=== PATIENT | male | born 1940 | race Caucasian/White ===

== ENCOUNTER 2024-01-01 02:36 | Observation (INO) | payer OTHER, SELFPAY ==
[2023-12-31 21:14] VITALS: BP 115/74
[2023-12-31 21:49] LABS: ALT (SGPT) 19 U/L (0-50); AST (SGOT) 36 U/L (17-59); Albumin 4.9 g/dl (3.5-5.0); Alkaline Phosphatase 77 U/L (38-126); Blood Urea Nitrogen 17 mg/dl (9-20); Carbon Dioxide 21 mmol/L (22-30); Chloride 102 mmol/L (98-107); Glucose 225 mg/dl (70-99); Potassium 4.8 mmol/L (3.5-5.1); Sodium 141 mmol/L (135-145); Total Bilirubin 0.4 mg/dl (0.2-1.3); Total Protein 7.5 g/dl (6.3-8.2); eGFR > 60.00
[2023-12-31 21:50] LABS: Creatine Phosphokinase 153 U/L (55-170)
[2023-12-31 21:53] LABS: % Basophils 0.2 % (0-2); % Immature Granulocytes 0.4 % (0-0.5); % Lymphocytes 2.8 % (20.5-51.1); % Monocytes 1.2 % (1.7-9.3); % Neutrophils 95.4 % (42.2-75.2); Absolute Lymphocytes 0.3 10^3/uL (1.2-3.4); Absolute Monocytes 0.1 10^3/uL (0.1-0.6); Absolute Neutrophils 10.6 10^3/uL (1.4-6.5); Mean Corp Hgb Conc. 34.8 g/dL (33.0-37.0); Mean Corpuscular Hgb 32.8 pg (27.0-31.0); Mean Corpuscular Volume 94.3 fL (80.0-94.0); Mean Platelet Volume 9.6 fL (7.4-10.4); Nucleated Red Blood Cells % 0 % (-); Platelet Count 255 10^3/uL (130-400); Red Blood Cell Count 4.88 10^6/uL (4.70-6.10); Red Cell Dist. Width 13.1 % (11.5-14.5); White Blood Cell Count 11.1 10^3/uL (4.8-10.8)
[2023-12-31 22:09] VITALS: BP 109/78
[2023-12-31 23:00] VITALS: BP 113/73
[2024-01-01] VITALS (8 sets, daily range): BP systolic 117–148; BP diastolic 57–79; PULSE 55–56; O2SAT 97; BMI 24.1
--- NOTE | 2024-01-01 00:08 | ED.GENMED ---
History of Present Illness
General
Chief Complaint: Fall
Source: patient and family
Exam Limitations: none
Time Seen by Provider: 01/01/24 00:07
Nursing documentation reviewed up to this point in time: agreed with
History of Present Illness
History of Present Illness:
Patient is an 83-year-old male who presents to the ER for evaluation. Patient lives alone and recalls getting up from a chair around 5 PM and then woke up on the floor. He is unsure if he passed out or if he hit his head and was not unconscious.
His family reports he normally checks every night at 5:00 and he responds but he did not respond until 7 PM when he texted them and told him he was on the ground and could not get up.
Patient does admit to having small mount of vodka and poured imself wine though son reports he hardly drank any of it. Family reports patient had wounds to his left arm and bruising and a forehead laceration.
Patient denies headache presently. He is not on blood thinners. He is unsure his last tetanus
Review of Systems
Review of Systems
Allergies reviewed?: Yes
Other source history: family
All Other Systems: ROS reviewed and negative except as documented in HPI and ROS
Constitutional: Reports no symptoms
Respiratory: Reports no symptoms
Cardiac: Reports no symptoms
ABD/GI: Reports no symptoms; Denies nausea or vomiting
: Reports no symptoms
Musculoskeletal: Reports other (left arm pain /shoulder + skin tear to left arm )
Skin: Reports other (see above )
Neurological: Reports other (Questionable loss of consciousness ); Denies dizzy or headache
Psychiatric: Reports no symptoms
Phy Exam
General Physical Exam
General Presentation: no apparent distress
General age: appears stated age
General Skin: warm and dry
General Habitus: elderly
General Mental: alert
General Hydration: dry mucous membranes
Cardiovascular Exam
Cardiovascular Exam: regular rate/rhythm, no murmur and normal peripheral pulses
Pulmonary Exam
Pulmonary Exam: lungs clear and no respiratory distress
Gastrointestinal Exam
Gastrointestinal Exam: non tender and soft
Neurological Exam
Neurological Exam: alert and oriented x3
Musculoskeletal Exam
Musculoskeletal Exam: other (+1 cm partial-thickness laceration to forehead; left upper extremity with tenderness throughout the left shoulder area mild deformity to left AC joint, skin tears to left forearm abrasion to left knee the full range of
motion to bilateral lower extremities including internal/external rotation of hip)
Skin Exam
Skin Exam: normal color and warm/dry
Psychiatric Exam
Psychiatric Exam: normal mood/affect
Course
Orders/Labs/Results
Orders:
Orders
12/31/23 21:19
CT Head W/o Iv Contrast Urgent
Comment:
Reason For Exam: unwitnessed fall, unsure if LOC
12/31/23 21:21
EKG [Electrocardiogram (*1)] Urgent
Reason for Study: Other
Other Reason for Exam: fall
EKG- Treatment ONCE
Trauma Shoulder, Left CR [CR Shoulder, Trauma - Left] Urgent
Comment:
Reason For Exam: fall, pain
12/31/23 21:28
CBC/With Diff [Complete Blood Count/With Diff] Urgent
CMP [Comprehensive Metabolic Panel] Urgent
CPK [Creatine Phosphokinase] Urgent
01/01/24 00:21
Tetanus/Diphth/Acelpertussis [Adacel] 0.5 ml IM .ONCE ONE
01/01/24 00:54
0.9% Sodium Chloride 500 ml [Nss] 500 ml IV BOLUS
01/01/24 00:55
0.9% Sodium Chloride 500 ml [Nss] 500 ml IV BOLUS
01/01/24 01:25
Gabapentin [Neurontin] 600 mg PO NOW STA
Chest [CR Chest - 2 Views ] Urgent
Comment:
Reason For Exam: fall
01/01/24 22:00
Gabapentin [Neurontin] 100 mg PO HS
Abnormal Lab Results
12/31/23
21:28
WBC 11.1 H 10^3/uL
(4.8-10.8)
MCV 94.3 H fL
(80.0-94.0)
MCH 32.8 H pg
(27.0-31.0)
Absolute Neuts (auto) 10.6 H 10^3/uL
(1.4-6.5)
Absolute Lymphs (auto) 0.3 L 10^3/uL
(1.2-3.4)
Neutrophils % 95.4 H %
(42.2-75.2)
Lymphocytes % 2.8 L %
(20.5-51.1)
Monocytes % 1.2 L %
(1.7-9.3)
Carbon Dioxide 21 L mmol/L
(22-30)
Glucose 225 H mg/dl
(70-99)
12/31/23 21:28
12/31/23 21:28
Vital Signs
Initial and Last Documented VS:
Initial Vital Signs
Temp Pulse Resp BP Pulse Ox
98.0 F 102 18 115/74 98
12/31/23 21:14 12/31/23 21:14 12/31/23 21:14 12/31/23 21:14 12/31/23 21:14
Last Documented Vital Signs
Temp Pulse Resp BP Pulse Ox
98.0 F 91 20 122/65 95
12/31/23 21:14 01/01/24 00:00 01/01/24 00:00 01/01/24 00:00 01/01/24 00:00
Procedures
Laceration Closure
Head:
Status of Wound: clean
Size of Wound in cm: 0.5
Description of Wound Edges: sharp
Preparation: cleaned with saline
Type of Closure: Dermabond-skin glue
Additional information:
Skin tears to left forearm repaired/approximated with Steri-Strips
MDM/Problems Addressed
Differential Diagnosis Includes:
Not limited to head injury, syncope, loss of conscious, laceration, skin tears, contusions
MDM/Problems Addressed:
Patient is 83-year-old male who was brought by family. Patient was eating and then remembers standing up and then apparently woke up on the floor. He does not recall feeling lightheaded. Son Desiree [place] about 5 PM and he did not respond until 7
stating he was on the floor. Syncope versus fall with loss of conscious. Patient did test small laceration to forehead which was repaired with Dermabond. He also had some skin tears to his left forearm which was cleansed with normal saline
approximated. Patient complained of left shoulder pain and x-rays do show AC injury. Patient denies any headache nausea vomiting he is not on blood thinners. He was up-to-date on tetanus. He denies any other extremity pain. He denies any chest
pain shortness of breath. Will admit for possible syncope and continued monitoring for possible arrhythmia patient. Patient does appear dry on exam was given fluids . glucose elevated at 225.
*Radiology
Radiology exam reviewed: radiology read reviewed
*Pulse Oximetry
Patient hypoxic: no
*EKG
Interpreted by ED Provider?: Yes
Heart Rate: 94
Rate: normal
Rhythm: sinus
Ischemia: no ischemia
*Critical Care Note
Total Time (30-74mins, 75-104mins- exclusive of procedures): Not Applicable
ED Attending Note
-
Portions of this chart may have been created with voice recognition software.� Occasional wrong word or��sound alike� substitutions may have occurred due to the inherent limitations of voice recognition software.
Discharge Plan
Departure
Patient Disposition: Admit
Date of Disposition: 01/01/24
Time of Disposition: 01:37
Admit to: Med/Surg
Admit to doctor: newton
Presentation/result/management discussed w/ accepting MD/DO: Hospitalist
Patient with high blood pressure during this ER visit?: No
Condition: Fair
Covid-19: Not Applicable
Discharge Problem:
Head injury, possible syncope, Laceration of head
Prescriptions:
No Action
gabapentin 600 mg Tablet
600 mg PO BID
losartan 25 mg
25 mg PO DAILY
Rx Instructions:
morning
metoprolol succinate 25 mg
25 mg PO DAILY
Rx Instructions:
morning
tamsulosin 0.4 mg
0.4 mg PO 4-8XD
Referrals:
Chucky Barba MD [Family Provider] -
Interventions
Interventions:
*Risk Screen - Suicide Last Done: 12/31/23 22:08
*Neglect/Abuse Screening Last Done: 12/31/23 22:08
ED- Neurological Assessment Last Done: 12/31/23 21:53
ED-Skin Assessment Last Done: 12/31/23 22:09
Discharge Date and Time
Print Language: BOTSWANAN
[2024-01-01] MEDS: ADACEL 0.5 ML IM (00:49)
[2024-01-01] MEDS: NSS 500 IV (00:55)
[2024-01-01] MEDS: NEURONTIN 600 MG PO ×2 (01:34→21:15)
--- NOTE | 2024-01-01 02:20 | HPS.HSE ---
Family Physician
-
Family Physician: Chucky Barba MD
Chief Complaint
-
Fall at Home
History of Present Illness
Patient is an 83y M with PMH significant for hypertension, peripheral neuropathy and DJD who presents to ED complaining of fall at home and LOC. Patient states that he was eating dinner and was feeling well this evening. He stood to walk to the
[employer] can and the next recollection he has is waking on the floor at home. He does not recall any sensations of lightheadedness, dizziness, chest pain, dyspnea, etc.
His son called him around 5:20 and received no answer. The patient returned his call around 7 - having apparently lost consciousness for a period of almost 2 hours.
Patient noted significant bleeding from an apparent injury to the L frontal scalp. He had abrasions on the L elbow and LLE.
Patient noted pain in the L shoulder with certain movements.
He does not recall the fall at all. He denies any prior h/o syncope.
He states that he has fallen in the past - typically related to tripping / stumbling which he attributes to his neuropathy.
Patient notes that he received injections (steroid / analgesia) to the R hip and R knee at [facility] around 3:30 PM.
He denies any recent changes to his medications.
In the ED, patient is resting comfortably and is awake, alert, pleasant and oriented.
Medical History
Past Medical History
Past Medical History: Reports Other
Additional Past Medical History:
Hypertension
Peripheral Neuropathy
BPH
DJD
Traumatic SDH
Past Surgical History: Reports Other
Additional Past Surgical History:
Right Knee Arthroscopy
Clarke Hole L Cranium
Social History
Tobacco: Non-smoker
Alcohol: Daily (1-2 drinks daily.)
Drug: None
Family History
Family History: Not pertinent
Allergies / Home Medications
Allergies reflects when Allergies were last updated in [facility].
Home Medications with original date entered in [facility]
Allergy/Medication List:
Allergies
Allergy/AdvReac Type Severity Reaction Status Date / Time
amoxicillin Allergy Unknown Verified 12/31/23 21:53
codeine Allergy Unknown Verified 12/31/23 21:53
Home Medications
gabapentin 600 mg tablet 600 mg PO BID 01/01/24
losartan 25 mg PO DAILY 01/01/24
metoprolol succinate 25 mg PO DAILY 01/01/24
tamsulosin 0.4 mg PO DAILY 01/01/24
Review of Systems
-
History Source: Patient
A 12 point ROS was completed and negative except as noted: Yes
Constitutional: Denies Fever or Chills
Respiratory: Denies Cough or Trouble Breathing
Cardiac: Denies Chest Pain or Palpitations
Abdomen/GI: Denies Abdominal Pain, Nausea, Vomiting or Diarrhea
: Denies Dysuria, Frequency or Flank Pain
Musculoskeletal: Reports Joint Pain; Denies Edema
Skin: Reports Other (Skin lesions / tears.)
Neurological: Reports Numbness; Denies Dizzy, Headache or Weakness
Psych: Denies Depression or Anxiety
Physical Exam
Vital Signs
Vital Signs
Temp Pulse Resp BP Pulse Ox
98.0 F 91 20 122/65 95
12/31/23 21:14 01/01/24 00:00 01/01/24 00:00 01/01/24 00:00 01/01/24 00:00
Physical Exam
General: Other (83y M in no acute distress. Awake and alert and bright / interactive.)
HEENT: Moist mucous membranes, PERRLA and Other (Superficial laceration L frontal area with evidence of prior bleeding. No active bleeding at present. L clarke hole scar L temporal area.)
Respiratory: Other (Few bibasilar rales. No wheeze / rhonchi.)
Cardiac: S1/S2 and Regular Rhythm; No Murmur
GI: Soft, Non Tender, Non Distended and Normal Bowel Sounds
Musculoskeletal: No Clubbing, No Cyanosis and No Edema
Skin: Other (Elbow dressing in place over skin tear. Scattered ecchymoses.)
Neuro: AO x 3 and Nonfocal/grossly intact
Laboratory Results
-
12/31/23 21:28
12/31/23:28
Laboratory Results
Total Bilirubin 0.4 mg/dl (0.2-1.3) 12/31/23 21:28
AST 36 U/L (17-59) 12/31/23:28
ALT 19 U/L (0-50) 12/31/23:
Alkaline Phosphatase 77 U/L (38-126) 12/31/23:
Impression/Plan
-
A/P: Patient is an 83y M with PMH significant for HTN, neuropathy and DJD who presents to ED complaining of fall at home and LOC.
Fall at Home
LOC / ? Syncope
- Observe overnight for further evaluation and treatment.
- ? fall with head trauma and resultant LOC versus syncope with resultant fall and head trauma?
- Based on prior history, former seems most likely.
- Monitor on telemetry overnight for any evidence of arrhythmia.
- Consider Cardiology evaluation if any significant abnormality noted.
- PT / OT evaluations in the AM for assessment of stability / gait.
Head Trauma
- Patient with evident head injury / scalp lac / bleeding.
- CT head unremarkable in the ED.
- Appears fully intact at present cognitively.
- Follow for any changes in neurologic exam / status.
- Repeat imaging immediately if any changes.
- He is not on any antiplatelet agents, OAC, etc.
Benign Hypertension
- Stable. Continue outpatient medications with holding parameters.
- Follow orthostatic BP, heart rate, etc given presentation.
- Adjust meds if needed.
Hyperglycemia
- Patient with no known history of DM, but glucose > 200.
- Suspect this is in part secondary to steroid injections that he received earlier in the day.
- Check A1C.
- Follow glucose and cover with SSI as needed.
DJD
Left AC Joint Injury
- Distal clavicle displaced superiorly on the L c/w AC joint injury.
- Sling when OOB.
- Ortho evaluation for additional recommendations.
- Seen at [facility] earlier on day of presentation and completed injections to the R hip and R knee.
Peripheral Neuropathy
- Stable. Continue gabapentin.
- PT / OT as noted above.
BPH
- Stable. Continue tamsulosin.
- Follow orthostatic signs as noted.
- Blader scan protocol.
DVT Prophylaxis: SCDs
Code Status: Full
--- NOTE | 2024-01-01 04:51 | PTCARENOTE ---
ax3 [place]- sinus- bp wnl- left forehead laceration with old blood along with left leg and elbow abrasions- pt ambulated with assistance to br voided. bed alarm placed for safety. pt agrees to use call cardozo
[2024-01-01 05:02] LABS: Hematocrit 42.8 % (39.0-52.0); Hemoglobin 14.9 g/dL (13.0-18.0); Mean Corp Hgb Conc. 34.8 g/dL (33.0-37.0); Mean Corpuscular Volume 94.7 fL (80.0-94.0); Mean Platelet Volume 9.5 fL (7.4-10.4); Platelet Count 210 10^3/uL (130-400); Red Blood Cell Count 4.52 10^6/uL (4.70-6.10); Red Cell Dist. Width 12.8 % (11.5-14.5); White Blood Cell Count 7.5 10^3/uL (4.8-10.8)
--- NOTE | 2024-01-01 05:12 | PTCARENOTE ---
sinus maxim 45-50 while asleep- per ed pt refused sling- . they brogguht up a sling if he changes his mind- string suggested he wear it while oob.
[2024-01-01 05:24] LABS: Blood Urea Nitrogen 20 mg/dl (9-20); Calcium 9.5 mg/dl (8.4-10.2); Carbon Dioxide 21 mmol/L (22-30); Chloride 106 mmol/L (98-107); Estimated Creatinine Clearance 95 ml/min; Glucose 131 mg/dl (70-99); Potassium 4.2 mmol/L (3.5-5.1); Sodium 137 mmol/L (135-145); eGFR > 60.00
[2024-01-01 05:27] LABS: Troponin I 0.012 ng/ml
[2024-01-01 05:52] LABS: TSH Reflex To Free T4 0.36 uIU/ml (0.47-4.68)
[2024-01-01] MEDS: NSS 1000 IV ×2 (05:56→15:39)
[2024-01-01 06:22] LABS: Free T4 0.97 ng/dl (0.78-2.19)
[2024-01-01 08:55] LABS: Glucose - Point of Care 144 mg/dl (70-99)
[2024-01-01] MEDS: NEURONTIN PO ×2 (09:12→10:42)
[2024-01-01] MEDS: FLOMAX 0.4 MG PO (09:12)
[2024-01-01] MEDS: COZAAR 25 MG PO (09:12)
[2024-01-01 09:30] LABS: Glycohemoglobin (HgbA1c) 4.9 % (4.0-5.6)
--- NOTE | 2024-01-01 11:05 | PTCARENOTE ---
Addendum entered by Juma Holman RN 01/01/24 17:59:
MD in to see patient at 1200, pt now agreeable to wear sling at this time.
Original Note:
Assumed care of pt from previous nurse. Sling applied to LUE, patient then removed it himself stating that it hurts to wear it. Pt states understanding of rationale of sling but refusing to wear it at this time.
[2024-01-01 11:49] LABS: Troponin I < 0.012 ng/ml
--- NOTE | 2024-01-01 11:50 | CM ---
Addendum entered by Anny Lovelace 01/01/24 16:21:
Therapy recommending PT/OT at home. CM called to patient son and left VM to discuss options for PT/OT at home. CM will continue to follow for discharge planning needs.
Original Note:
Patient seen at bedside with physician. Patient son also present. Patient states that he lives alone in a 2 story home. Patient has a quad cane that he uses. Patient uses [facility] in [place], Dr. Parker is his PCP. Patient stated that he plans to go
home with no needs but would be open to PT/OT pending medical treatment plan. Patient is OBS/[place] and form reviewed with patient and son. Signed form placed on chart. CM will continue to follow for discharge planning needs.
Plan; home with VN vs outpatient therapy; pending medical treatment assessments.
--- NOTE | 2024-01-01 11:57 | W.PN.HOSP.TC ---
Today's Communication/Plan
-
await PT/OT/ortho
Assessment / Plan
Assessment / Plan
pt is an 83 year old male
Fall at Home--LOC +/- ? Syncope--pt said he doesn't know what happened because he hit his head - likely fall with head trauma and resultant LOC - PT / OT evaluations in the AM for assessment of stability / gait.
Head Trauma - Patient with evident head injury/ scalp lac/bleeding - CT head unremarkable in the ED - Appears fully intact at present cognitively - Follow for any changes in neurologic exam / status - He is not on any antiplatelet agents, OAC, etc.
Benign Hypertension - Stable. Continue outpatient medications with holding parameters - Follow orthostatic BP, heart rate, etc given presentation - Adjust meds if needed.
Hyperglycemia - Patient with no known history of DM, but glucose > 200. - Suspect this is in part secondary to steroid injections that he received earlier in the day - Check A1C- Follow glucose and cover with SSI as needed.
DJD--Left AC Joint Injury- - Distal clavicle displaced superiorly on the L c/w AC joint injury- - Sling when OOB--await Ortho evaluation for additional recommendations - Seen at [facility] earlier on day of presentation and completed injections to the
R hip and R knee.
Peripheral Neuropathy - Stable. Continue gabapentin. - PT / OT as noted above.
BPH - Stable. Continue tamsulosin - negative orthostatic signs as noted - Blader scan protocol.
DVT Prophylaxis: SCDs
Code Status: Full
Anticipated Discharge: Within 24 hours
Subjective/Interval History
-
Date of Service: January 01, 2024
pt says his 'left shoulder is more prominent than it usually is'--denies dizziness
Objective Data
-
Labs:
Laboratory Results
01/01/24
04:43
WBC 7.5
Hgb 14.9
Hct 42.8
Plt Count 210
Sodium 137
Potassium 4.2
Chloride 106
Carbon Dioxide 21 L
BUN 20
Creatinine 0.6 L
Glucose 131 H
Calcium 9.5
Vital Signs:
max temp for 24 hours
01/01/24
07:43
Temp 98.5 F
Vital Signs
Temp Pulse Resp BP Pulse Ox
97.9 F 57 14 126/69 99
01/01/24 11:00 01/01/24 11:00 01/01/24 11:00 01/01/24 11:00 01/01/24 11:00
Review of Systems
-
All other systems: Reviewed and negative
Physical Exam
-
General: Well Developed, Well Nourished and No Apparent Distress
HEENT: Normocephalic; Negative Atraumatic (bruise on left forehead)
Respiratory: Clear to Auscultation; Negative Wheezes or Rhonchi
Cardiac: Regular Rhythm and S1/S2; Negative Murmur
GI: Soft, Nontender, Nondistended and Normal Bowel Sounds
Musculoskeletal: No Clubbing, No Cyanosis and No Edema
Skin: Other (bruises all over)
Neuro: Awake and Alert
Psych: Calm
[2024-01-01 12:04] LABS: Glucose - Point of Care 227 mg/dl (70-99)
[2024-01-01 16:40] LABS: Glucose - Point of Care 92 mg/dl (70-99)
--- NOTE | 2024-01-01 18:42 | CON.ORTHO ---
Consultation - Orthopedics
History
HPI: 83-year-old male presented to the emergency department status post fall with ambulatory dysfunction. He was admitted to the hospital service orthopedics consulted for evaluation of a left shoulder. This afternoon patient reports that he was
at home when he fell. He is unsure if he tripped or how exactly he fell. He does typically have knee and hip pain for which she just recently underwent corticosteroid injections yesterday. Patient is complaining of deformity to left shoulder. He
is active complaining of fairly minimal pain to the shoulder. Denies any associate numbness or ting. He is in a sling and comfortable at rest. He is right-hand dominant. He reports that he has a cane but does not really require it for ambulatory
assistance.
Allergies / Home Medications
Past medical history: Hypertension, peripheral neuropathy, hip and knee DJD, traumatic subdural hematoma
Past surgical history: Right knee arthroscopy, clarke hole
Social history: Lives at home, non-smoker, daily drinker reportedly
Social history: Not pertinent
Allergy/AdvReac Type Severity Reaction Status Date / Time
amoxicillin Allergy Unknown Verified 12/31/23 21:53
codeine Allergy Unknown Verified 12/31/23 21:53
�Medication �Instructions �Recorded
gabapentin 600 mg tablet 600 mg PO BID 01/01/24
losartan 25 mg PO DAILY 01/01/24
metoprolol succinate 25 mg PO DAILY 01/01/24
tamsulosin 0.4 mg PO DAILY 01/01/24
Vital Signs / Lab Results
Temp Pulse Resp BP Pulse Ox
97.8 F 49 14 128/64 98
01/01/24 15:00 01/01/24 15:00 01/01/24 15:00 01/01/24 15:00 01/01/24 15:00
01/01/24 04:43
01/01/24 04:43
10 point review systems reviewed and negative unless otherwise stated
General: Pleasant, no acute distress
Musculoskeletal left upper extremity
Sling in place
Skin intact, no ecchymotic staining, there is some redness overlying the AC joint deformity
There is obvious deformity AC joint on inspection
AC joint deformity is somewhat reducible with shoulder shrug
Very minimal tenderness palpation over deformity
Shoulder range of motion testing deferred
There is no tenderness palpation over elbow wrist or fingers
No gross motor or sensory deficits distally
No other areas of bony tenderness palpation crepitation of long bones or joints and tertiary examination
Diagnostic studies
X-rays left shoulder do show greater than 100% displacement of the clavicle relative to the acromion. No fractures identified
Assessment / Plan
83-year-old male left AC joint separation. Had a long discussion the patient regarding diagnosis and treatment options. I explained to him that typically this is treated conservatively without surgery certainly given his age and activity level
this is what I would recommend. He does have some changes to the skin overlying the deformity. There is no blanching evident and it does not appear as though skin has any impending compromise. I did explain to him that if he should notice any
significant changes to the appearance of the skin certainly to contact us. I would like to see the patient office in 1 to 2 weeks for skin check. Would anticipate temporary immobilization sling approximate 2 weeks with progressive range of motion
with physical therapy and outpatient basis. This was explained in detail the patient he was agreement with this plan. Will plan to follow-up on outpatient basis. Please reach out any questions or concerns. No plans for acute orthopedic
intervention
[2024-01-01 20:29] LABS: Troponin I 0.021 ng/ml
[2024-01-02 01:03] LABS: Glucose - Point of Care 114 mg/dl (70-99)
[2024-01-02] MEDS: NSS 1000 IV (03:28)
[2024-01-02 03:46] VITALS: BP 128/65
[2024-01-02 07:50] VITALS: BP 148/69
[2024-01-02 07:57] LABS: Glucose - Point of Care 112 mg/dl (70-99)
[2024-01-02] MEDS: NEURONTIN 600 MG PO (08:16)
[2024-01-02] MEDS: COZAAR 25 MG PO (08:16)
[2024-01-02] MEDS: FLOMAX 0.4 MG PO (08:16)
[2024-01-02 09:53] LABS: Hematocrit 41.8 % (39.0-52.0); Hemoglobin 14.4 g/dL (13.0-18.0); Mean Corp Hgb Conc. 34.4 g/dL (33.0-37.0); Mean Corpuscular Hgb 32.4 pg (27.0-31.0); Mean Corpuscular Volume 93.9 fL (80.0-94.0); Mean Platelet Volume 10.3 fL (7.4-10.4); Platelet Count 230 10^3/uL (130-400); Red Blood Cell Count 4.45 10^6/uL (4.70-6.10); Red Cell Dist. Width 13.2 % (11.5-14.5); White Blood Cell Count 11.6 10^3/uL (4.8-10.8)
--- NOTE | 2024-01-02 10:17 | W.PN.HOSP.TC ---
Today's Communication/Plan
-
d/c
Assessment / Plan
Assessment / Plan
pt is an 83 year old male
Fall at Home--LOC +/- ? Syncope--pt said he doesn't know what happened because he hit his head - likely fall with head trauma and resultant LOC - PT / OT
Head Trauma - Patient with evident head injury/ scalp lac/bleeding - CT head unremarkable in the ED - Appears fully intact at present cognitively - Follow for any changes in neurologic exam / status - He is not on any antiplatelet agents, OAC, etc.
Benign Hypertension - Stable. Continue outpatient medications with holding parameters - Follow orthostatic BP, heart rate, etc given presentation - Adjust meds if needed.
Hyperglycemia - Patient with no known history of DM, but glucose > 200. - Suspect this is in part secondary to steroid injections that he received earlier in the day - Check A1C- Follow glucose and cover with SSI as needed.
DJD--Left AC Joint Injury- - Distal clavicle displaced superiorly on the L c/w AC joint injury- - Sling when OOB--apprec Ortho evaluation for additional recommendations - Seen at [facility] earlier on day of presentation and completed injections to the
R hip and R knee.
Peripheral Neuropathy - Stable. Continue gabapentin. - PT / OT as noted above.
BPH - Stable. Continue tamsulosin - negative orthostatic signs as noted - Blader scan protocol.
DVT Prophylaxis: SCDs
Code Status: Full
Anticipated Discharge: Today
Subjective/Interval History
-
Date of Service: January 02, 2024
pt ready for d/c
Objective Data
-
Labs:
Laboratory Results
01/02/24 01/02/24
08:48 08:49
WBC 11.6 H
Hgb 14.4
Hct 41.8
Plt Count 230
Sodium Pending
Potassium Pending
Chloride Pending
Carbon Dioxide Pending
BUN Pending
Creatinine Pending
Glucose Pending
Calcium Pending
Vital Signs:
max temp for 24 hours
01/01/24
23:30
Temp 98.4 F
Vital Signs
Temp Pulse Resp BP Pulse Ox
97.9 F 48 16 148/68 98
01/02/24 07:50 01/02/24 08:16 01/02/24 07:50 01/02/24 08:16 01/02/24 07:50
I&O
01/01/24 01/02/24 01/03/24
06:59 06:59 06:59
Intake Total 420 / 420
Output Total 1650 / 1650
Balance -1230 / -1230
Review of Systems
-
All other systems: Reviewed and negative
Physical Exam
-
General: Well Developed, Well Nourished and No Apparent Distress
HEENT: Normocephalic and Atraumatic
Respiratory: Clear to Auscultation; Negative Wheezes or Rhonchi
Cardiac: Regular Rhythm and S1/S2; Negative Murmur
GI: Soft, Nontender, Nondistended and Normal Bowel Sounds
Musculoskeletal: No Clubbing, No Cyanosis, No Edema and Other (left arm in a sling)
Skin: Warm
Neuro: Awake
[2024-01-02 11:06] LABS: Blood Urea Nitrogen 14 mg/dl (9-20); Calcium 9.4 mg/dl (8.4-10.2); Carbon Dioxide 22 mmol/L (22-30); Chloride 110 mmol/L (98-107); Estimated Creatinine Clearance 95 ml/min; Glucose 145 mg/dl (70-99); Magnesium 2.3 mg/dl (1.6-2.3); Potassium 4.4 mmol/L (3.5-5.1); Sodium 139 mmol/L (135-145); eGFR > 60.00
--- NOTE | 2024-01-02 11:13 | CM ---
Addendum entered by Anny Lovelace 01/02/24 13:10:
CM updated patient son that referral to [facility] for follow up and he should anticipate a call to review expectations.
Original Note:
Patient seen at bedside, CM sent tt to Liaison for VN assessment. Patient for discharge today and eager to go. Patient son to transport. CM will continue to follow for discharge planning needs.
Plan; home with VN; pending acceptance.
--- NOTE | 2024-01-02 13:15 | W.DCSUMMARY ---
Discharge Summary
Discharge Data
Date of Admission: 01/01/24
Date of Discharge: 01/02/24
-
Pending Results: No
Hospital Course
Primary care physician : Chucky Barba
Principal Discharge diagnosis : Fall at home with resultant loss of consciousness from head trauma, left acromioclavicular joint injury
Chronic Discharge diagnosis : Hyperglycemia, essential hypertension, peripheral neuropathy, benign prostatic hyperplasia
Hospital Course : Patient was an 83-year-old male who presented to the emergency department complaining of a fall at home with loss of consciousness. Patient stated he was eating dinner and was feeling well. He stood to walk to the trash can and
he stated that the next recollection he had was waking up on the floor at home. It is unclear how long he was on the floor. Patient noted significant bleeding from an apparent injury to the left frontal scalp. He states he has fallen in the past
usually related to tripping and stumbling. Patient was awake in the emergency department and was brought in as observation.
Problem #1: Fall at home with resultant loss of consciousness from head trauma. Patient's CAT scan of the head was negative. He was seen in consultation by physical therapy and Occupational Therapy; he had no further issues and his orthostatics
were negative.
Problem #2: Left acromioclavicular joint injury. Patient was seen in consultation by orthopedics. Sling was recommended. Patient did not require any surgical intervention at this time. He is scheduled to follow-up with orthopedics in 1 to 2
weeks at which point progressive range of motion can be started. This can be done with physical therapy on an outpatient basis.
Problem #3: All other medical issues. These include Hyperglycemia, essential hypertension, peripheral neuropathy, benign prostatic hyperplasia. These medical issues were stable during his hospitalization. Medications were continued as able.
Patient is stable for discharge home at this time with his sling. If there are any questions regarding this dictation or his hospital stay, please do not hesitate to call. Our office number is [phone].
Discharge Plan
-
Patient Disposition: Home with Home Care
Discharge Diagnosis/Procedures: Fall followed by loss of consciousness due to head trauma, essential hypertension, hyperglycemia, left acromioclavicular joint injury requiring sling, peripheral neuropathy, benign prostatic hyperplasia
Condition: Good
Diet: 2 Gram Sodium
Activity: Other activity
Additional Activity: as directed by orthopedics
Driving Restrictions: Not until seen by your Dr
Bathing Restrictions: None
Other Services: VN, PT and OT
Referrals:
Chucky Barba MD [Family Provider] - in less than 1 week
Kev Tomas MD [Active] - in one to two weeks
Prescriptions:
New
acetaminophen 325 mg Tablet
650 mg PO Q4HPRN PRN (Reason: Mild Pain / Temp > 101) Qty: 0 0RF
Continued
gabapentin 600 mg Tablet
600 mg PO BID
losartan 25 mg
25 mg PO DAILY
Rx Instructions:
morning
metoprolol succinate 25 mg
25 mg PO DAILY
Rx Instructions:
morning
tamsulosin 0.4 mg
0.4 mg PO DAILY
Discharge Orders:
Discharge Patient (As Directed); Ordered 01/02/24
Ordered By: Zayda Cotter
Discharge Date and Time
Discharge Date/Time: 01/02/24 11:33
Print Language: CHADIAN
--- NOTE | 2024-01-02 14:16 | VNURNOTE ---
Late entry: Attempted to meet patient at bedside, he had already left for home. Call placed to son Brenden, left message. [facility] referral has been [facility] into [facility], awaiting acceptance.
== END 2024-01-02 11:33 | disposition home health service (06) ==
LOC: 4 WEST ACU 02:36
PROVIDERS: Emergency Medicine; ADMITTING PHYSICIAN Hospitalist; ATTENDING PHYSICIAN Internal Medicine; CONSULT PHYSICIAN Orthopaedic Surgery; EMERGENCY PHYSICIAN Emergency Medicine; FAMILY PHYSICIAN Internal Medicine
DX: S06.0X1A Concussion with loss of consciousness of 30 minutes or less, initial encounter (principal); R55 Syncope and collapse; S01.01XA Laceration without foreign body of scalp, initial encounter; S43.102A Unspecified dislocation of left acromioclavicular joint, initial encounter; S51.812A Laceration without foreign body of left forearm, initial encounter; S50.312A Abrasion of left elbow, initial encounter; S80.212A Abrasion, left knee, initial encounter; W19.XXXA Unspecified fall, initial encounter; Y93.9 Activity, unspecified; Y92.009 Unspecified place in unspecified non-institutional (private) residence as the place of occurrence of the external cause; G62.9 Polyneuropathy, unspecified; R73.9 Hyperglycemia, unspecified; I10 Essential (primary) hypertension; N40.0 Benign prostatic hyperplasia without lower urinary tract symptoms; M19.90 Unspecified osteoarthritis, unspecified site; Z60.2 Problems related to living alone; Z88.0 Allergy status to penicillin; Z88.5 Allergy status to narcotic agent
CPT/HCPCS: 12001; 70450; 71046; 73030; 80048; 80053; 82550; 82962; 83036; 83735; 84439; 84443; 84484; 85025; 85027; 90471; 90715; 93005; 96360; 97163; 97166; 99285

== ENCOUNTER 2024-08-05 10:29 | Emergency (ER) | payer OTHER, SELFPAY ==
[2024-08-05 10:37] VITALS: BP 137/72
[2024-08-05 10:52] VITALS: BMI 22.9
--- NOTE | 2024-08-05 12:36 | ED.GENMED ---
History of Present Illness
General
Chief Complaint: Musculo-Skeletal Complaint
Time Seen by Provider: 08/05/24 10:43
History of Present Illness
History of Present Illness:
83-year-old male presents the emergency department for evaluation of a wound to the left shoulder. He originally had a fall In December 2023 resulting in a significant AC separation. He was seen in follow-up by Ortho due to concern for skin tenting
however no skin changes develops. States that he did have another fall approximately 4 to 6 weeks ago and noted this morning that there was a punctate wound over the area with clear discharge. Denies any pain or loss of range of motion. No fevers
or chills
Review of Systems
Review of Systems
Allergies reviewed?: Yes
All Other Systems: ROS reviewed and negative except as documented in HPI and ROS
Phy Exam
Physical Exam
Physical Exam:
GEN: Well appearing, NAD, WDWN
HEENT: Oral mucosa moist, no scleral icterus
Cardiac: Regular rate
Lung: No respiratory distress, no tachypnea
MSK: AC joint step-off compatible with known AC separation. There is mild skin erythema with no warmth or tenderness. To the central aspect of the erythema there is a punctate wound with mild amount of serous discharge
Skin: Good color, no pallor or jaundice, no rashes
Neuro: AO x3, moves all extremities freely
Psych: Calm, cooperative
Course
Orders/Labs/Results
Orders:
Orders
08/05/24 10:53
CR Shoulder - Left Min 2 View* Urgent
Comment:
Reason For Exam: distal clavicle wound/discharge
08/05/24 12:43
Wound Culture [Wound/Abscess/Other Culture] Urgent
VIKKI Source: Shoulder
Specimen Description: Left
Date Specimen was Collected: 08/05/24
Time Specimen was Collected: 12:42
Vital Signs
Initial and Last Documented VS:
Initial Vital Signs
Temp Pulse Resp BP Pulse Ox
98.2 F 52 16 137/72 98
08/05/24 10:37 08/05/24 10:37 08/05/24 10:37 08/05/24 10:37 08/05/24 10:37
Last Documented Vital Signs
Temp Pulse Resp BP Pulse Ox
98.2 F 52 16 137/72 98
08/05/24 10:37 08/05/24 10:37 08/05/24 10:37 08/05/24 10:37 08/05/24 10:37
MDM/Problems Addressed
MDM/Problems Addressed:
Discussed the case with patient's orthopedist through [facility]. Will cover with prophylactic antibiotics and strict wound care guidelines, outpatient Ortho follow-up in 1 week
*Critical Care Note
Total Time (30-74mins, 75-104mins- exclusive of procedures): Not Applicable
ED Attending Note
-
Portions of this chart may have been created with voice recognition software.� Occasional wrong word or��sound alike� substitutions may have occurred due to the inherent limitations of voice recognition software.
Discharge Plan
Departure
Patient Disposition: Home (Routine Discharge)
Date of Disposition: 08/05/24
Time of Disposition: 12:36
Patient with high blood pressure during this ER visit?: No
Discharge Problem:
Open wound of left shoulder
Instructions: Wound care - ED discharge instructions
Prescriptions:
New
cephalexin 500 mg capsule
500 mg PO TID 7 Days Qty: 21 0RF
No Action
gabapentin 600 mg Tablet
600 mg PO BID
losartan 25 mg
25 mg PO DAILY
Rx Instructions:
morning
metoprolol succinate 25 mg
25 mg PO DAILY
Rx Instructions:
morning
tamsulosin 0.4 mg
0.4 mg PO DAILY
acetaminophen 325 mg Tablet
650 mg PO Q4HPRN PRN (Reason: Mild Pain / Temp > 101) Qty: 0 0RF
Referrals:
Chucky Barba MD [Family Provider] -
Kev Tomas MD [Active] - Follow up in 1 week
Activity Restrictions/Additional Instructions:
Keep wound covered every day
Interventions
Interventions:
*Risk Screen - Suicide Last Done: 08/05/24 10:52
*General Assessment Last Done: 08/05/24 10:52
*Neglect/Abuse Screening Last Done: 08/05/24 10:52
*ED- Fall Risk Assessment Last Done: 08/05/24 10:52
*ED COVID-19 Vaccine History Last Done: 08/05/24 10:52
*Nursing Disposition Last Done: 08/05/24 12:45
ED-Musculoskeletal Assessment Last Done: 08/05/24 10:54
Discharge Date and Time
Discharge Date/Time: 08/05/24 12:50
Print Language: GUAMANIAN
== END 2024-08-05 12:50 | disposition home or self-care (01) ==
LOC: EMR 10:29
PROVIDERS: EMERGENCY PHYSICIAN Emergency Medicine; FAMILY PHYSICIAN Internal Medicine; OTHER PHYSICIAN Orthopaedic Surgery
DX: S41.002A Unspecified open wound of left shoulder, initial encounter (principal); S43.102A Unspecified dislocation of left acromioclavicular joint, initial encounter; W19.XXXA Unspecified fall, initial encounter; Z88.1 Allergy status to other antibiotic agents; Z88.5 Allergy status to narcotic agent
CPT/HCPCS: 99283; 73030; 87070; 87147; 87205

== ENCOUNTER → 2024-08-28 07:37 | Outpatient (REF) | payer OTHER, SELFPAY | LOC: WOUND 07:37 | PROVIDERS: ATTENDING PHYSICIAN Surgery | DX: S41.002A Unspecified open wound of left shoulder, initial encounter (principal); M24.412 Recurrent dislocation, left shoulder; E11.9 Type 2 diabetes mellitus without complications; X58.XXXA Exposure to other specified factors, initial encounter | CPT/HCPCS: 99204 ==

== ENCOUNTER → 2024-09-04 08:57 | Outpatient (REF) | payer OTHER, SELFPAY | LOC: WOUND 08:57 | PROVIDERS: ATTENDING PHYSICIAN Surgery | DX: S41.002A Unspecified open wound of left shoulder, initial encounter (principal); M24.412 Recurrent dislocation, left shoulder; E11.9 Type 2 diabetes mellitus without complications; W19.XXXA Unspecified fall, initial encounter | CPT/HCPCS: 99213 ==

== ENCOUNTER → 2024-09-18 08:45 | Outpatient (REF) | payer OTHER, SELFPAY | LOC: WOUND 08:45 | PROVIDERS: ATTENDING PHYSICIAN Surgery | DX: S41.002A Unspecified open wound of left shoulder, initial encounter (principal); M24.412 Recurrent dislocation, left shoulder; E11.9 Type 2 diabetes mellitus without complications; W19.XXXA Unspecified fall, initial encounter | CPT/HCPCS: 99212 ==

== ENCOUNTER → 2024-10-29 08:11 | Outpatient (REF) | payer OTHER, SELFPAY | LOC: PAVMRI 08:11 | PROVIDERS: ATTENDING PHYSICIAN Surgery | DX: S41.002A Unspecified open wound of left shoulder, initial encounter (principal); M24.412 Recurrent dislocation, left shoulder | CPT/HCPCS: 73221 ==

== ENCOUNTER → 2025-02-06 13:49 | Outpatient (REF) | payer OTHER, SELFPAY | LOC: RAD 13:49 | PROVIDERS: ATTENDING PHYSICIAN Internal Medicine Gastroenterology; FAMILY PHYSICIAN Internal Medicine | DX: K59.00 Constipation, unspecified (principal) | CPT/HCPCS: 74018 ==

== ENCOUNTER 2025-03-06 06:26 | Day surgery (SDC) | payer OTHER, SELFPAY | END 2025-03-06 10:58 | disposition home or self-care (01) | LOC: GI 06:26 | PROVIDERS: ATTENDING PHYSICIAN Internal Medicine Gastroenterology | DX: K57.30 Diverticulosis of large intestine without perforation or abscess without bleeding (principal); K92.1 Melena; R19.4 Change in bowel habit; D12.0 Benign neoplasm of cecum; D12.2 Benign neoplasm of ascending colon; D12.3 Benign neoplasm of transverse colon; D12.4 Benign neoplasm of descending colon; D12.8 Benign neoplasm of rectum; K63.89 Other specified diseases of intestine | CPT/HCPCS: 45385; 45380; 45381; 88305 ==

== ENCOUNTER 2025-04-09 06:17 | Day surgery (SDC) | payer OTHER, SELFPAY ==
[2025-04-09 08:51] VITALS: BMI 23.0
[2025-04-09 08:52] VITALS: BMI 23.0
[2025-04-09 08:54] VITALS: BP 133/79
[2025-04-09 12:43] VITALS: BP 131/84
[2025-04-09 13:00] VITALS: BP 129/70
[2025-04-09 13:06] VITALS: BP 135/84
== END 2025-04-09 13:20 | disposition home or self-care (01) ==
LOC: GI 06:17
PROVIDERS: ATTENDING PHYSICIAN Internal Medicine Gastroenterology
DX: K57.30 Diverticulosis of large intestine without perforation or abscess without bleeding (principal); K64.9 Unspecified hemorrhoids; C18.0 Malignant neoplasm of cecum; D12.6 Benign neoplasm of colon, unspecified; D12.3 Benign neoplasm of transverse colon; D12.4 Benign neoplasm of descending colon; D12.8 Benign neoplasm of rectum
CPT/HCPCS: 45390; 45380; 88305; 88342

== ENCOUNTER 2025-04-20 12:34 | Observation (INO) | payer OTHER, SELFPAY ==
[2025-04-20] VITALS (9 sets, daily range): BP systolic 109–133; BP diastolic 54–69; BMI 23.2
--- NOTE | 2025-04-20 09:03 | ED.GENMED ---
History of Present Illness
<Henrry Matos PA-C - Last Filed: 04/20/25 11:02>
General
Chief Complaint: Rectal Bleeding
Source: patient
Exam Limitations: none
Time Seen by Provider: 04/20/25 08:13
History of Present Illness
History of Present Illness:
84-year-old male presents with large amount of red blood after having bowel movement today. He had a colonoscopy on 09 April had 3 large polyps removed. He was straining to have bowel movements and he took a laxative last evening and had a
bowel movement today he noticed the bowel movement was brown in color but then had a large amount of red blood in with it. He denies lightheadedness or shortness of breath. He is not anticoagulated. No chest pain. No fevers. No other complaints
Phy Exam
<MAGGIE Mcgowan Last Filed: 04/20/25 11:02>
Physical Exam
Physical Exam:
General: Well-appearing male no acute respiratory distress
HEENT: Normal cephalic atraumatic
Heart: Regular rate and rhythm
Lungs: Clear no wheeze
Abdomen is soft nontender
Rectal exam: Maroon-colored stool heme positive no bleeding hemorrhoids
Course
<MAGGIE Mcgowan Last Filed: 04/20/25 11:02>
Orders/Labs/Results
Orders:
Orders
04/20/25 09:07
Type+Screen Urgent
Complete Blood Count/With Diff Urgent
Comprehensive Metabolic Panel Urgent
Abnormal Lab Results
04/20/25
09:07
RBC 4.09 L 10^6/uL
(4.70-6.10)
Hgb 12.5 L g/dL
(13.0-18.0)
MCV 95.6 H fL
(80.0-94.0)
MCHC 32.0 L g/dL
(33.0-37.0)
Absolute Monos (auto) 0.8 H 10^3/uL
(0.1-0.6)
Immature Gran % 0.6 H %
(0-0.5)
Monocytes % 11.8 H %
(1.7-9.3)
Carbon Dioxide 32 H mmol/L
(22-30)
04/20/25 09:07
04/20/25 09:07
Vital Signs
Initial and Last Documented VS:
Initial Vital Signs
Temp Pulse Resp BP Pulse Ox
97.5 F 59 18 124/54 99
04/20/25 08:07 04/20/25 08:07 04/20/25 08:07 04/20/25 08:07 04/20/25 08:07
Last Documented Vital Signs
Temp Pulse Resp BP Pulse Ox
97.5 F 59 18 121/64 100
04/20/25 08:07 04/20/25 08:07 04/20/25 08:07 04/20/25 09:10 04/20/25 09:15
Andrealt;Donavon Cabral, DO - Last Filed: 04/20/25 10:57>
Orders/Labs/Results
Orders:
Orders
04/20/25 09:07
Type+Screen Urgent
Complete Blood Count/With Diff Urgent
Comprehensive Metabolic Panel Urgent
Abnormal Lab Results
04/20/25
09:07
RBC 4.09 L 10^6/uL
(4.70-6.10)
Hgb 12.5 L g/dL
(13.0-18.0)
MCV 95.6 H fL
(80.0-94.0)
MCHC 32.0 L g/dL
(33.0-37.0)
Absolute Monos (auto) 0.8 H 10^3/uL
(0.1-0.6)
Immature Gran % 0.6 H %
(0-0.5)
Monocytes % 11.8 H %
(1.7-9.3)
Carbon Dioxide 32 H mmol/L
(22-30)
04/20/25 09:07
04/20/25 09:07
Vital Signs
Initial and Last Documented VS:
Initial Vital Signs
Temp Pulse Resp BP Pulse Ox
97.5 F 59 18 124/54 99
04/20/25 08:07 04/20/25 08:07 04/20/25 08:07 04/20/25 08:07 04/20/25 08:07
Last Documented Vital Signs
Temp Pulse Resp BP Pulse Ox
97.5 F 59 18 121/64 100
04/20/25 08:07 04/20/25 08:07 04/20/25 08:07 04/20/25 09:10 04/20/25 09:15
<Henrry Matos PA-C - Last Filed: 04/20/25 11:02>
MDM/Problems Addressed
Differential Diagnosis Includes:
Patient with rectal bleeding. He had polypectomy performed on 09 April. Question hemorrhoidal versus post polypectomy bleed. Will check labs. Vital signs are stable. Nontender. Considered imaging but not indicated. Reach out to GI
<Henrry Matos PA-C - Last Filed: 04/20/25 11:02>
*Pulse Oximetry
SaO2: 99
Oxygen Mode of Delivery: Room air
Patient hypoxic: no
*Critical Care Note
Total Time (30-74mins, 75-104mins- exclusive of procedures): Not Applicable
<Henrry Matos PA-C - Last Filed: 04/20/25 11:02>
Update Note
Update Note:
Hemoglobin 12.5. When compared to most recent value which was last year this is dropped about 2 g. Vital signs remained stable. Discussed with emergency room attending as well as GI. Likely post polypectomy bleed. Will keep in hospital for
further evaluation
ED Attending Note
<Henrry Matos PA-C - Last Filed: 04/20/25 11:02>
-
Portions of this chart may have been created with voice recognition software.� Occasional wrong word or��sound alike� substitutions may have occurred due to the inherent limitations of voice recognition software.
<Donavon Cabral DO - Last Filed: 04/20/25 10:57>
ED Attending Note
Patient seen and examined by attending physician: Yes
I performed the substantive portion of visit, reviewed & personally made and approve the management plan that is documented in note by myself or URIAH.: Yes
Discharge Plan
Departure
Patient Disposition: Admit
Date of Disposition: 04/20/25
Time of Disposition: 11:01
Presentation/result/management discussed w/ accepting MD/: Hospitalist
Discharge Problem:
Rectal bleed
Prescriptions:
No Action
tamsulosin [Flomax] 0.4 mg Capsule
0.4 mg PO DAILY Qty: 0
losartan 25 mg Tablet
25 mg PO DAILY Qty: 0
metoprolol succinate [Toprol XL] 25 mg Tablet Extended Release 24 Hr
25 mg PO DAILY Qty: 0
cholecalciferol (vitamin D3) [Vitamin D3] 50 mcg (2,000 unit) Tablet
50 mcg PO DAILY
Neuriva Original 100-100 mg Capsule
1 cap PO DAILY
ibuprofen [Motrin] 400 mg Tablet
400 mg PO Q6HPRN PRN (Reason: mild pain)
gabapentin 300 mg Capsule
600 mg PO BID
bisacodyl [Dulcolax (bisacodyl)] 5 mg Tablet,Delayed Release (Dr/Ec)
5 mg PO DAILYPRN PRN (Reason: constipation)
Referrals:
UNKNOWN - PT DOES,NOT KNOW [Family Provider]
Interventions
Interventions:
*Risk Screen - Suicide Last Done: 04/20/25 08:07
*General Assessment Last Done: 04/20/25 08:07
*Neglect/Abuse Screening Last Done: 04/20/25 08:07
*ED- Fall Risk Assessment Last Done: 04/20/25 08:59
*ED COVID-19 Vaccine History Last Done: 04/20/25 08:59
*ED Influenza Vaccine History Last Done: 04/20/25 08:59
PU-Vbpbsb-Qybykvgnnd Assessment Last Done: 04/20/25 08:59
ED- Cardiac Assessment Last Done: 04/20/25 08:59
ED- Pulmonary Assessment Last Done: 04/20/25 08:59
Discharge Date and Time
Print Language: CITIZEN [place]
[2025-04-20 09:27] LABS: Hematocrit 39.1 % (39.0-52.0); Hemoglobin 12.5 g/dL (13.0-18.0); Mean Corp Hgb Conc. 32.0 g/dL (33.0-37.0); Mean Corpuscular Volume 95.6 fL (80.0-94.0); Nucleated Red Blood Cells % 0 % (-); Platelet Count 280 10^3/uL (130-400); Red Cell Dist. Width 13.3 % (11.5-14.5)
[2025-04-20 09:35] LABS: ALT (SGPT) 18 U/L (0-50); AST (SGOT) 22 U/L (17-59); Albumin 3.7 g/dl (3.5-5.0); Alkaline Phosphatase 66 U/L (38-126); Blood Urea Nitrogen 19 mg/dl (9-20); Calcium 9.1 mg/dl (8.4-10.2); Carbon Dioxide 32 mmol/L (22-30); Chloride 106 mmol/L (98-107); Estimated Creatinine Clearance 80 ml/min; Glucose 99 mg/dl (70-99); Potassium 4.2 mmol/L (3.5-5.1); Sodium 138 mmol/L (135-145); Total Protein 6.5 g/dl (6.3-8.2); eGFR > 60.00
--- NOTE | 2025-04-20 12:32 | CM ---
Chart reviewed and MCKEE reviewed and son and patient at ED bedside
Lives alone in [address] with [address] via garage
Independent with all ADLs and ambulation
Drives
DME [facility] for outside walk
2 sons Cody and Vasyl are local and very supportive
PCP Dr. Serra
RX plan yes
Pharmacy [facility] in [place]
hx of [facility] for arm fx
no hx of SNF
DCP is to go home with no services
Son Brenden can provide transportation at [place]
CM will continue to follow up for any dcp needs
--- NOTE | 2025-04-20 13:40 | CON.GI ---
Addendum entered and electronically signed by Tonia Mallory MD 04/20/25 16:12:
The patient was seen and examined by me independently in collaboration with the nurse practitioner.
Past medical history/social history/medications/allergies/family history reviewed.
Lab data and imaging data reviewed.
84-year-old male past medical history as below with recent colonoscopy April 09 with large polyps removed by Dr. Acosta presenting with bright red blood per rectum about a third of a cup. No anticoagulation. Does suffer with constipation. Taking
Motrin daily. Suspect either postpolypectomy bleed versus hemorrhoids. Monitor hemoglobin, signs for overt bleeding, keep on clear liquid diet. For now, hold off on colonoscopy. If he has ongoing bleeding, we will need to proceed. Discussed
with patient and family at bedside needs another endoscopic procedure for removal of 1 additional polyp in the rectum as an outpatient not during this admission. Discussed with hospitalist and ER. If stable Hb and no further bleeding, ok GI POV
for dc in AM. Updated Dr. Acosta as well.
Original Note:
Consultation
-
Date/Time Consultation Requested: 04/20/25 1245
Date/Time Consultation Performed: 04/20/25 1330
Requesting Provider: Hnerry Levi PA-C
Performing Provider: CASSIE Bartholomew, Alesia Mallory MD
Reason for Consultation: large amount of bring red blood per rectum
Medical History
Chief Complaint / HPI
History of Present Illness:
Pt is a 84yo present with hx HTN, hyperlipidemia, impaired fasting glucose, subdural hematoma with prior craniotomy, erectile dysfunction, insomnia, neuropathy, hearing loss, DJD with meniscus repair, b/l lens implants, constipation with initial
colonoscopy with Dr. Marroquin with multiple TA polyps some resected and other large polyps around cecum 18 mm TC 15-18 mm with sharp angulation with tattoo, 20mm DC polyp tatooed and 35-40mm distal rectum polyps not removed. He returned
to Dr. Acosta on 04/09/25 for repeat colonoscopy with EMR of large polyps with APC and rectal polyps not removed due to length of procedure. He is now 10 days post procedure and admits to continued constipation with no stools for several days the
noted straining 04/19 with use of Dulcolax and noted 1 teaspoon of blood 04/19 with larger amount of medium red blood on 04/20 at 5am and presents for eval. On admission hbg was 12.5 with prior hbg 2023 14.4.
Pt admits to chronic constipation with use of Metamucil and miralax but admits to not taking every day. He denies odynophagia, dysphagia, GERD, nausea, vomiting, abdominal pain, diarrhea or black stools. + daily Motrin use for joint pains.
colonoscopy 03/06/[address] Marroquin with multiple polyps including 3 mm cecal polyp,removed with cold snare 18mm cecal polyp around appendiceal orifice biopsy taken with cold forceps, 12 mm polyp AC removed with cold snare, 15-18 mm polyp TC
with sharp angulated turn- sessile, bx takens with cold forceps tattooed injected with carbon black, 2 sessile polyp DC 3-4 mm removed with cold snare, 20mm polyp DC sessile, bx taken and tattooed, 35-40mm polyp distal Rectum just proximal to
dentate line, granular and lateral spreading, bx taken diverticulosis throughout. bx TA polyps throughout but TC unremarkable and lymphoid aggrate
repeated colonoscopy 04/09/25 Dr. Acosta with hemorrhoids, normal ileum One 17 mm polyp in the cecum. Resected and retrieved. Treated with argon plasma coagulation (APC). Mucosal resection was performed. Resection was complete, and retrieval was
complete One 35 mm polyp in the transverse colon. One 30 mm polyp in the descending colon. Resected and retrieved. Treated with argon plasma coagulation (APC). Clips were placed. Mucosal resection was performed. Resection was complete, and
retrieval was complete. diverticulosis, 40mm polyp rectum resection not attempted due to long procedure.
Past Medical History
Past Medical History: Other (TA colon polyp with recent EMR resection of several large polyps, HTN, hyperlipidemia, impaired fasting glucose, subdural hematoma with prior craniotomy, erectile dysfunction, insomnia, neuropathy, hearing loss, DJD with
meniscus repair, b/l lens implants, constipation)
Social History
Tobacco: Smoker (4 cigars daily)
Alcohol: Former (prior 2 drinks daily quit 5 months ago )
Drug: Other (THC use)
Living: Alone
Employment: Retired
Family History
Family History: Other (father with lung CA, son with hx polyps)
Allergies / Home Medications
Allergy/AdvReac Type Severity Reaction Status Date / Time
amoxicillin Allergy swelling Verified 04/20/25 08:07
of hands
codeine Allergy Nausea / Verified 04/20/25 08:07
Vomiting
lisinopril Allergy cough Verified 04/20/25 08:07
�Medication �Instructions �Recorded
losartan 25 mg tablet 25 mg PO DAILY Blood Pressure ##0 01/01/24
metoprolol succinate 25 mg 25 mg PO DAILY Blood Pressure ##0 01/01/24
tablet,extended release 24 hr
(Toprol XL)
tamsulosin 0.4 mg capsule 0.4 mg PO DAILY Urinary Issue ##0 01/01/24
cholecalciferol (vitamin D3) 50 50 mcg PO DAILY Supplement 04/09/25
mcg (2,000 unit) tablet (Vitamin
D3)
coffee extract 100 mg-phosphatidyl 1 cap PO DAILY Supplement 04/09/25
serine 100 mg capsule (Neuriva
Original)
bisacodyl 5 mg tablet,delayed 5 mg PO DAILYPRN PRN constipation 04/20/25
release (Dulcolax (bisacodyl))
gabapentin 300 mg capsule 600 mg PO BID Neurological 04/20/25
Condition
ibuprofen 400 mg tablet 400 mg PO Q6HPRN PRN mild pain 04/20/25
Review of Systems
-
History Source: Patient and Family
Constitutional: Reports Weight Loss (intentional loss 3 years ago )
EENT: Reports No Symptoms
Respiratory: Reports No Symptoms
Cardiac: Reports No Symptoms
Abdomen/GI: Reports Constipated and Bloody Stools
: Reports No Symptoms
Musculoskeletal: Reports Joint Pain
Skin: Reports No Symptoms
Neurological: Reports Dizzy and Weakness
Endocrine: Reports No Symptoms
Hematologic/Lymphatic: Reports Bleeding
Vital Signs
Temp Pulse Resp BP Pulse Ox
97.5 F 59 18 109/58 100
04/20/25 08:07 04/20/25 08:07 04/20/25 08:07 04/20/25 12:00 04/20/25 12:30
Physical Exam
Exam
General: Well Developed, Well Nourished and No Apparent Distress
HEENT: Normocephalic
Respiratory: Clear
Cardiac: Other (bradicardia )
GI: Non Tender and Normal Bowel Sounds
Rectal: Other (per ER marroon stool no bleeding, + hemorrhoids )
Musculoskeletal: No Clubbing and No Cyanosis
Skin: Warm and Dry
Neuro: Awake, Alert and AO x 3
Psych: Calm
Results
WBC 6.6 10^3/uL (4.8-10.8) 04/20/25 09:07
Hgb 12.5 g/dL (13.0-18.0) L 04/20/25 09:07
Hct 39.1 % (39.0-52.0) 04/20/25 09:07
MCV 95.6 fL (80.0-94.0) H 04/20/25 09:07
Plt Count 280 10^3/uL (130-400) 04/20/25 09:07
Absolute Neuts (auto) 4.2 10^3/uL (1.4-6.5) 04/20/25 09:07
Sodium 138 mmol/L (135-145) 04/20/25 09:07
Potassium 4.2 mmol/L (3.5-5.1) 04/20/25 09:07
Chloride 106 mmol/L (98-107) 04/20/25 09:07
Carbon Dioxide 32 mmol/L (22-30) H 04/20/25 09:07
BUN 19 mg/dl (9-20) 04/20/25 09:07
Creatinine 0.7 mg/dL (0.7-1.3) 04/20/25 09:07
Calcium 9.1 mg/dl (8.4-10.2) 04/20/25 09:07
Total Bilirubin 0.3 mg/dl (0.2-1.3) 04/20/25 09:07
AST 22 U/L (17-59) 04/20/25 09:07
ALT 18 U/L (0-50) 04/20/25 09:07
Alkaline Phosphatase 66 U/L (38-126) 04/20/25 09:07
Diagnostic Image Results:
02/06/25 CR Abdomen - 1 View
Nonobstructive bowel gas pattern.
Mild colonic stool burden
Prior GI Procedures:
colonoscopy 03/06/[address] Marroquin with multiple polyps including 3 mm cecal polyp,removed with cold snare 18mm cecal polyp around appendiceal orifice biopsy taken with cold forceps, 12 mm polyp AC removed with cold snare, 15-18 mm polyp TC
with sharp angulated turn- sessile, bx takens with cold forceps tattooed injected with carbon black, 2 sessile polyp DC 3-4 mm removed with cold snare, 20mm polyp DC sessile, bx taken and tattooed, 35-40mm polyp distal Rectum just proximal to
dentate line, granular and lateral spreading, bx taken diverticulosis throughout. bx TA polyps throughout but TC unremarkable and lymphoid aggrate
repeated colonoscopy 04/09/25 Dr. Acosta with hemorrhoids, normal ileum One 17 mm polyp in the cecum. Resected and retrieved. Treated with argon plasma coagulation (APC). Mucosal resection was performed. Resection was complete, and retrieval was
complete One 35 mm polyp in the transverse colon. One 30 mm polyp in the descending colon. Resected and retrieved. Treated with argon plasma coagulation (APC). Clips were placed. Mucosal resection was performed. Resection was complete, and
retrieval was complete. diverticulosis, 40mm polyp rectum resection not attempted due to long procedure.
Assessment / Plan
-
Pt is a 84yo present with hx HTN, hyperlipidemia, impaired fasting glucose, subdural hematoma with prior craniotomy, erectile dysfunction, insomnia, neuropathy, hearing loss, DJD with meniscus repair, b/l lens implants, constipation with initial
colonoscopy with Dr. Marroquin with multiple TA polyps some resected and other large polyps around cecum 18 mm TC 15-18 mm with sharp angulation with tattoo, 20mm DC polyp tattooed and 35-40mm distal rectum polyps not removed. He
returned to Dr. Acosta on 04/09/25 for repeat colonoscopy with EMR of large polyps with APC and rectal polyps not removed due to length of procedure. He is now 10 days post procedure and admits to continued constipation with no stools for several
days the noted straining 04/19 with use of Dulcolax and noted 1 teaspoon of blood 04/19 with larger amount of medium red blood on 04/20 at 5am and presents for eval. On admission hbg was 12.5 with prior hbg 2023 14.4. + daily Motrin use for joint
pains.
colonoscopy 03/06/[address] Marroquin with multiple polyps including 3 mm cecal polyp,removed with cold snare 18mm cecal polyp around appendiceal orifice biopsy taken with cold forceps, 12 mm polyp AC removed with cold snare, 15-18 mm polyp TC
with sharp angulated turn- sessile, bx takens with cold forceps tattooed injected with carbon black, 2 sessile polyp DC 3-4 mm removed with cold snare, 20mm polyp DC sessile, bx taken and tattooed, 35-40mm polyp distal Rectum just proximal to
dentate line, granular and lateral spreading, bx taken diverticulosis throughout. bx TA polyps throughout but TC unremarkable and lymphoid aggrate
repeated colonoscopy 04/09/25 Dr. Acosta with hemorrhoids, normal ileum One 17 mm polyp in the cecum. Resected and retrieved. Treated with argon plasma coagulation (APC). Mucosal resection was performed. Resection was complete, and retrieval was
complete One 35 mm polyp in the transverse colon. One 30 mm polyp in the descending colon. Resected and retrieved. Treated with argon plasma coagulation (APC). Clips were placed. Mucosal resection was performed. Resection was complete, and
retrieval was complete. diverticulosis, 40mm polyp rectum resection not attempted due to long procedure.
-rectal bleeding -- possible post polypectomy bleeding vs other
-chronic constipation
-recent colonoscopy with EMR resection of large polyps and retained rectal polyp due for resection
-mild anemia on admission
-daily NSAID use
-hx hemorrhoids
other med problem
HTN, hyperlipidemia, impaired fasting glucose, subdural hematoma with prior craniotomy, erectile dysfunction, insomnia, neuropathy, hearing loss, DJD with meniscus repair, b/l lens implants
PLAN:
etiology of bleeding related to polyp polypectomy bleeding ? clip falling off vs hemorrhoids vs other
no further stools since 5 am
would monitor stool output and hbg
if continued bleeding consider prep and colonoscopy as may be bleeding from prior EMR site
trend hbg
ok for clear diet
add Miralax daily and senna at HS as increased constipation prior to admission
path pending from recent resection of polyps
discussed NSAID avoidance with chronic use
pt is aware he will need to arrange repeat colonoscopy with Dr. Acosta as still need resection of rectal polyp
family updated and agreeable to plan
-
-
Thank you for consultation and allowing me to participate in the patient's care. Please call the manager contracting GI physician during the after hours with any questions or concerns.
--- NOTE | 2025-04-20 14:50 | HPS.HSE ---
Family Physician
-
Family Physician: NOT KNOW UNKNOWN - PT DOES
Chief Complaint
-
gi bleed
History of Present Illness
84 history of hypertension neuropathy BPH DJD traumatic subdural hematoma who presents with maroon-colored stools that began last night. States last night was 1 teaspoon at this morning was significantly more. Blood was maroon in color not mixed
with stool filled the entire toilet bowl. No associated abdominal pain no nausea vomiting. Admits to straining requiring MiraLAX. Not on blood thinners. Last bloody bowel movement around 5 AM. Son at bedside states was reviewing [facility]
hemoglobin result was 14.3 in February.
Medical History
Past Medical History
Past Medical History: Reports Other
Past Surgical History: Reports Other
Social History
Alcohol: None
Family History
Family History: Not pertinent
Allergies / Home Medications
Allergies reflects when Allergies were last updated in [employer].
Home Medications with original date entered in [employer]
Allergy/Medication List:
Allergies
Allergy/AdvReac Type Severity Reaction Status Date / Time
amoxicillin Allergy swelling Verified 04/20/25 08:07
of hands
codeine Allergy Nausea / Verified 04/20/25 08:07
Vomiting
lisinopril Allergy cough Verified 04/20/25 08:07
Home Medications
losartan 25 mg tablet 25 mg PO DAILY Blood Pressure ##0 01/01/24
metoprolol succinate 25 mg tablet,extended release 24 hr (Toprol XL) 25 mg PO DAILY Blood Pressure ##0 01/01/24
tamsulosin 0.4 mg capsule 0.4 mg PO DAILY Urinary Issue ##0 01/01/24
cholecalciferol (vitamin D3) 50 mcg (2,000 unit) tablet (Vitamin D3) 50 mcg PO DAILY Supplement 04/09/25
coffee extract 100 mg-phosphatidyl serine 100 mg capsule (Neuriva Original) 1 cap PO DAILY Supplement 04/09/25
bisacodyl 5 mg tablet,delayed release (Dulcolax (bisacodyl)) 5 mg PO DAILYPRN PRN constipation 04/20/25
gabapentin 300 mg capsule 600 mg PO BID Neurological Condition 04/20/25
ibuprofen 400 mg tablet 400 mg PO Q6HPRN PRN mild pain 04/20/25
Review of Systems
-
A 12 point ROS was completed and negative except as noted: Yes
Physical Exam
Vital Signs
Vital Signs
Temp Pulse Resp BP Pulse Ox
97.7 F 49 18 133/64 95
04/20/25 14:35 04/20/25 14:35 04/20/25 14:35 04/20/25 14:35 04/20/25 14:35
Physical Exam
General: No Apparent Distress
Laboratory Results
-
04/20/25 09:07
04/20/25 09:07
Laboratory Results
Total Bilirubin 0.3 mg/dl (0.2-1.3) 04/20/25 09:07
AST 22 U/L (17-59) 04/20/25 09:07
ALT 18 U/L (0-50) 04/20/25 09:07
Alkaline Phosphatase 66 U/L (38-126) 04/20/25 09:07
Impression/Plan
-
NAD
Scleral Anicteric
MMM
No JVD
CTABL
RRR, S1/S2
Soft, NT, ND, BS+
Warm, Dry
AAOx3
Calm
GI bleed low cannot exclude hemorrhoidal versus AVM versus diverticular versus recent polypectomy on 04/09
Constipation
Normocytic anemia acute blood loss with 1.9 grams decrease from previous
BPH
Hypertension
Maintain 2 large-bore IVs
Transfuse if hemoglobin less than 7
IV fluids
Clear liquid diet
Bowel regimen
I do not believe requires PPIs at this time as this is not a upper GI bleed
If becomes hemodynamically unstable obtain CT GI bleed study
I do not believe he requires C-scope at this time however will consult GI and make him make that decision
Continue Flomax
Continue antihypertensive
Outpatient GI follow-up for polypectomy biopsy result
[2025-04-20] MEDS: VITAMIN D3 (cholecalciferol) 50 MCG PO (15:20)
[2025-04-20] MEDS: MIRALAX 17 GRAMS PO (15:20)
[2025-04-20] MEDS: 0.45%NACL 1000 IV (15:33)
[2025-04-20] MEDS: NEURONTIN 600 MG PO (20:04)
[2025-04-20] MEDS: SENOKOT 17.2 MG PO (20:05)
[2025-04-21] MEDS: 0.45%NACL 1000 IV (03:36)
[2025-04-21 07:41] LABS: Hematocrit 38.3 % (39.0-52.0); Hemoglobin 12.4 g/dL (13.0-18.0); Mean Corp Hgb Conc. 32.4 g/dL (33.0-37.0); Mean Corpuscular Volume 92.7 fL (80.0-94.0); Platelet Count 274 10^3/uL (130-400); Red Cell Dist. Width 13.4 % (11.5-14.5)
[2025-04-21 08:12] LABS: Blood Urea Nitrogen 12 mg/dl (9-20); Calcium 9.0 mg/dl (8.4-10.2); Carbon Dioxide 30 mmol/L (22-30); Chloride 106 mmol/L (98-107); Estimated Creatinine Clearance 93 ml/min; Glucose 85 mg/dl (70-99); Potassium 4.1 mmol/L (3.5-5.1); Sodium 139 mmol/L (135-145); eGFR > 60.00
[2025-04-21 08:18] VITALS: BP 125/66
[2025-04-21] MEDS: TOPROL XL 25 MG PO (08:31)
[2025-04-21] MEDS: NEURONTIN 600 MG PO (08:31)
[2025-04-21] MEDS: MIRALAX 17 GRAMS PO (08:31)
[2025-04-21] MEDS: COZAAR 25 MG PO (08:32)
[2025-04-21] MEDS: FLOMAX 0.4 MG PO (08:32)
[2025-04-21] MEDS: VITAMIN D3 (cholecalciferol) 50 MCG PO (08:32)
--- NOTE | 2025-04-21 09:09 | W.PN.GI.CBS2 ---
Today's Communication / Plan
-
etiology of bleeding related to polyp polypectomy bleeding ? clip falling off vs hemorrhoids vs other
bleeding now resolved
stool 04/20 5am with blood and now with brown stool
hbg stable 12.4
hold on colonoscopy -- will advance to regular diet
On discharge continue Miralax daily, Metamucil daily and senna at HS
path pending from recent resection of polyps-- follow up with Dr. Acosta to review
I sent message to GI office to call later this week to arrange repeat procedure to remove rectal polyp
discussed NSAID avoidance with chronic use
updated nursing staff
Assessment / Plan
-
Pt is a 84yo present with hx HTN, hyperlipidemia, impaired fasting glucose, subdural hematoma with prior craniotomy, erectile dysfunction, insomnia, neuropathy, hearing loss, DJD with meniscus repair, b/l lens implants, constipation with initial
colonoscopy with Dr. Marroquin with multiple TA polyps some resected and other large polyps around cecum 18 mm TC 15-18 mm with sharp angulation with tattoo, 20mm DC polyp tattooed and 35-40mm distal rectum polyps not removed. He
returned to Dr. Acosta on 04/09/25 for repeat colonoscopy with EMR of large polyps with APC and rectal polyps not removed due to length of procedure. He is now 10 days post procedure and admits to continued constipation with no stools for several
days the noted straining 04/19 with use of Dulcolax and noted 1 teaspoon of blood 04/19 with larger amount of medium red blood on 04/20 at 5am and presents for eval. On admission hbg was 12.5 with prior hbg 2023 14.4. + daily Motrin use for joint
pains.
colonoscopy 03/06/[address] Marroquin with multiple polyps including 3 mm cecal polyp,removed with cold snare 18mm cecal polyp around appendiceal orifice biopsy taken with cold forceps, 12 mm polyp AC removed with cold snare, 15-18 mm polyp TC
with sharp angulated turn- sessile, bx takens with cold forceps tattooed injected with carbon black, 2 sessile polyp DC 3-4 mm removed with cold snare, 20mm polyp DC sessile, bx taken and tattooed, 35-40mm polyp distal Rectum just proximal to
dentate line, granular and lateral spreading, bx taken diverticulosis throughout. bx TA polyps throughout but TC unremarkable and lymphoid aggrate
repeated colonoscopy 04/09/25 Dr. Acosta with hemorrhoids, normal ileum One 17 mm polyp in the cecum. Resected and retrieved. Treated with argon plasma coagulation (APC). Mucosal resection was performed. Resection was complete, and retrieval was
complete One 35 mm polyp in the transverse colon. One 30 mm polyp in the descending colon. Resected and retrieved. Treated with argon plasma coagulation (APC). Clips were placed. Mucosal resection was performed. Resection was complete, and
retrieval was complete. diverticulosis, 40mm polyp rectum resection not attempted due to long procedure.
-rectal bleeding -- possible post polypectomy bleeding vs other
-chronic constipation
-recent colonoscopy with EMR resection of large polyps and retained rectal polyp due for resection
-mild anemia on admission
-daily NSAID use
-hx hemorrhoids
other med problem
HTN, hyperlipidemia, impaired fasting glucose, subdural hematoma with prior craniotomy, erectile dysfunction, insomnia, neuropathy, hearing loss, DJD with meniscus repair, b/l lens implants
PLAN:
etiology of bleeding related to polyp polypectomy bleeding ? clip falling off vs hemorrhoids vs other
bleeding now resolved
stool 04/20 5am with blood and now with brown stool
hbg stable 12.4
hold on colonoscopy -- will advance to regular diet
On discharge continue Miralax daily, Metamucil daily and senna at HS
path pending from recent resection of polyps-- follow up with Dr. Acosta to review
I sent message to GI office to call later this week to arrange repeat procedure to remove rectal polyp
discussed NSAID avoidance with chronic use
updated nursing staff
Subjective
Subjective
Date of Service: April 21, 2025
Just had brown stool this am without blood on clear diet feeling well
Objective
Data Reviewed
Laboratory Data:
Laboratory Results
04/21/25 06:47
04/21/25 06:47
Laboratory Results
Total Bilirubin 0.3 mg/dl (0.2-1.3) 04/20/25 09:07
AST 22 U/L (17-59) 04/20/25 09:07
ALT 18 U/L (0-50) 04/20/25 09:07
Alkaline Phosphatase 66 U/L (38-126) 04/20/25 09:07
Vital Signs and I&O:
Vital Signs
Temp Pulse Resp BP Pulse Ox
97.8 F 50 18 125/66 97
04/21/25 08:18 04/21/25 08:31 04/21/25 08:18 04/21/25 08:31 04/21/25 08:18
I&O
04/20/25 04/21/25 04/22/25
06:59 06:59 06:59
Output Total 150 / 150
Balance -150 / -150
Physical Exam
Physical Exam
HEENT: Anicteric and Moist mucous membranes
Cardiology: Other (bradicardia )
Pulmonary: Clear
GI: Soft, Non Distended and Non Tender
Extremities: No Edema
Neuro: Non Focal
--- NOTE | 2025-04-21 11:55 | CM ---
Patient seen at beside. He is for discharge home today. He denies home care needs. Patient reports that son will provide transportation home
.
Plan:home today no needs
--- NOTE | 2025-04-21 16:17 | W.DCSUMMARY ---
Discharge Summary
Discharge Data
Date of Admission: 04/20/25
Date of Discharge: 04/21/25
-
Pending Results: No
Hospital Course
84 history of hypertension neuropathy BPH DJD traumatic subdural hematoma
Presented with findings consistent with lower gi bleed. hgb decreased by almost 2grams from previous lab work in February. recent hx of polpectomy x3 with GI and rectal polyp remains inplace that will need to be removed via C-scope. Blood count
remained stable along with blood pressure. No further bleeding. GI rec outpatient follow up and to conitnue bowel reg. Avoid strainging and constipation.
Seen and exmained on the day of discharge which was 04/21. No new complaints. No acute overnight events.
Had a brown bowel movement
NAD
Scleral Anicteric
MMM
No JVD
CTABL
RRR, S1/S2
Soft, NT, ND, BS+
Warm, Dry
AAOx3
Calm
More than 30 minutes spent in discharge including
Final examination of the patient
Summarizing hospital stay
Instructions for continuing care to all relevant caregivers
Preparation of discharge records, prescriptions, and referral forms
Total time spent (in minutes): 33mins
Discharge Plan
-
Patient Disposition: Home (Routine Discharge)
Discharge Diagnosis/Procedures: gi bleed
Condition: Fair
Diet: As tolerated
Activity: As tolerated
Activity Restrictions/Additional Instructions:
Presented with findings consistent with lower gi bleed. hgb decreased by almost 2grams from previous lab work in February. recent hx of polpectomy x3 with GI and rectal polyp remains inplace that will need to be removed via C-scope. Blood count
remained stable along with blood pressure. No further bleeding. GI rec outpatient follow up and to conitnue bowel reg. Avoid strainging and constipation.
Referrals:
Jonatan Acosta MD [Active, Gastroenterology]
Referral Note: call GI office to arrange repeat procedure for removal of rectal polyp. Will also need to review pathology of polyps resected as results still pending
UNKNOWN - PT DOES,NOT KNOW [Family Provider]
Additional Discharge Medication Instructions: continue Miralax daily, Metamucil daily and senna at HS
Prescriptions:
New
polyethylene glycol 3350 17 gram Powder In Packet
17 g PO DAILY Qty: 30 0RF
sennosides [Lilo-jb] 8.6 mg Tablet
17.2 mg PO HS Qty: 30 0RF
Continued
tamsulosin 0.4 mg Capsule
0.4 mg PO DAILY Qty: 0
losartan 25 mg Tablet
25 mg PO DAILY Qty: 0
metoprolol succinate [Toprol XL] 25 mg Tablet Extended Release 24 Hr
25 mg PO DAILY Qty: 0
cholecalciferol (vitamin D3) [Vitamin D3] 50 mcg (2,000 unit) Tablet
50 mcg PO DAILY
Neuriva Original 100-100 mg Capsule
1 cap PO DAILY
ibuprofen 400 mg Tablet
400 mg PO Q6HPRN PRN (Reason: mild pain)
gabapentin 300 mg Capsule
600 mg PO BID
bisacodyl [Dulcolax (bisacodyl)] 5 mg Tablet,Delayed Release (Dr/Ec)
5 mg PO DAILYPRN PRN (Reason: constipation)
Discharge Orders:
Discharge Patient (As Directed); Ordered 04/21/25
Ordered By: Yoel Birmingham
Discharge Date and Time
Discharge Date/Time: 04/21/25 13:07
Print Language: FRISIAN
== END 2025-04-21 13:07 | disposition home or self-care (01) ==
LOC: 4 EAST ACU 12:34
PROVIDERS: Physician Assistant; ADMITTING PHYSICIAN Hospitalist; CONSULT PHYSICIAN Internal Medicine Gastroenterology; EMERGENCY PHYSICIAN Emergency Medicine
DX: K92.2 Gastrointestinal hemorrhage, unspecified (principal); D62 Acute posthemorrhagic anemia; M19.90 Unspecified osteoarthritis, unspecified site; F17.290 Nicotine dependence, other tobacco product, uncomplicated; I10 Essential (primary) hypertension; E78.5 Hyperlipidemia, unspecified; K59.09 Other constipation; N40.0 Benign prostatic hyperplasia without lower urinary tract symptoms; Z79.899 Other long term (current) drug therapy; Z86.0100 Personal history of colon polyps, unspecified; K64.9 Unspecified hemorrhoids
CPT/HCPCS: 80048; 80053; 85025; 85027; 86850; 86900; 86901; 99285; G0378